=== PATIENT | female | born 1985 | race African-American/Black ===

== ENCOUNTER 2016-12-19 23:56 | Emergency (ER) | payer OTHER ==
[~2016-12-19 23:56] MED LIST: BACTRIM DS TABL1 TA1 PO; BP MED PO; IRON1 TA1 PO; NIFEREX-150150 MG PO; PERCOCET 5-3251 TAB PO; PRENATAL1 TA1 PO; TAMIFLU75 M1 PO; ZOFRAN ODT4 MG PO; ZOFRAN PO
== END 2016-12-20 00:11 | disposition home or self-care (01) ==
LOC: SED 23:56
DX: H60.01 Abscess of right external ear (principal); F17.200 Nicotine dependence, unspecified, uncomplicated
CPT/HCPCS: 99282